=== PATIENT | male | born 2000 | race African-American/Black ===

== ENCOUNTER 2023-09-09 15:28 | Emergency (ER) | payer OTHER ==
[~2023-09-09] VITALS: Ht 165.1 cm; Wt 63.5 kg
[2023-09-09] MEDS ORDERED: Amoxicillin/Clavulanate Pota 875 MG TAB PO ONE (16:20)
[2023-09-09] MEDS ORDERED: AMOX-CLAV 875-1 EACH PO (16:26)
[2023-09-09] MEDS ORDERED: MELOXICAM15 MG PO (16:27)
== END 2023-09-09 16:37 | disposition home or self-care (01) ==
LOC: ED 15:28
DX: K04.7 Periapical abscess without sinus (principal); J02.0 Streptococcal pharyngitis; M25.571 Pain in right ankle and joints of right foot; Z91.010 Allergy to peanuts